=== PATIENT | male | born 1985 | race Hispanic/Latino ===

== ENCOUNTER 2016-07-23 08:26 | Day surgery (SDC) | payer MEDICAID ==
[2016-07-23] MEDS ORDERED: Lactated Ringer's 500 ML IV ONE (09:24)
[2016-07-23] MEDS ORDERED: Propofol 10 mg/ml Inj (20 ML) ONE (09:27)
[2016-07-23 10:49] VITALS: RESP 16
[2016-07-23 10:50] VITALS: O2SAT 97
[2016-07-23 10:53] VITALS: BP 119/67; PULSE 73; TEMP 98.2
== END 2016-07-23 10:30 | disposition home or self-care (01) ==
LOC: C.ENDO 08:26
PROVIDERS: ATTEND Internal Medicine Gastroenterology
DX: K29.50 Unspecified chronic gastritis without bleeding (principal); K92.0 Hematemesis; K21.9 Gastro-esophageal reflux disease without esophagitis; K29.80 Duodenitis without bleeding; B96.81 Helicobacter pylori [H. pylori] as the cause of diseases classified elsewhere
CPT/HCPCS: 43239; 88305; 88312; 88313; 88342; J2001; J2704; J3010; J7120